=== PATIENT | female | born 1990 | race Caucasian/White ===

== ENCOUNTER 2019-03-02 23:52 | Emergency (ER) | payer SELFPAY ==
[~2019-03-02] VITALS: Ht 172.7 cm; Wt 97.8 kg
[2019-03-02 23:55] VITALS: BP 134/81; PULSE 85; RESP 18; Ht 172.7 cm; Wt 97.8 kg
[2019-03-03] MEDS ORDERED: SULF1TAB31 PO (01:54)
[2019-03-03] MEDS ORDERED: CEPH-443 PO (01:54)
--- NOTE | 2019-03-03 02:02 | ERD ---
ER Documentation Chief Complaint Chief Complaint R calf pain and swelling and itchy HPI This is an otherwise healthy 28-year-old female presents to the ED complaining of right calf and swelling since 6:30 PM. Patient states she noticed the symptoms after using the sauna earlier today. Redness has been progressively worsening. States her calf feels hot. She denies any calf pain. Denies any shortness of breath or chest pain. No other complaints. ROS All systems reviewed and are negative except as per history of present illness. Medications Home Meds Active Scripts Sulfamethoxazole/Trimethoprim* (Bactrim Ds* Tablet) 1 Each Tablet, 1 TAB PO BID, #10 TAB Prov:DISHIGRIKIAN,ZEPYUR N PA-C 03/03/19 Cephalexin* (Keflex*) 500 Mg Capsule, 500 MG PO QID for 5 Days, CAP Prov:DISHIGRIKIAN,ZEPYUR N PA-C 03/03/19 PMhx/Soc Medical and Surgical Hx: pt denies Medical Hx, pt denies Surgical Hx Hx Alcohol Use: No Hx Substance Use: No Hx Tobacco Use: No Physical Exam Vitals Vital Signs Date Temp Pulse Resp B/P (MAP) Pulse Ox O2 O2 Flow FiO2 Time Delivery Rate 03/02/19 99.2 85 18 134/81 99 23:55 (98) Physical Exam Const: No acute distress Head: Atraumatic Eyes: Normal Conjunctiva ENT: Normal External Ears, Nose and Mouth. Neck: Full range of motion. No meningismus. Skin: + Approximately 5 x 3 cm area of erythema and swelling to the right posterior calf, warm to the touch. Back: No midline or flank tenderness Ext: No cyanosis, or edema. Negative Homans sign. No pain with dorsiflexion. Neur: Awake and alert Psych: Normal Mood and Affect Procedures/MDM This is a 28-year-old female who presents with right calf erythema and swelling. She has no fever here. Vital signs are stable. Patient has a low risk Wells score, therefore doubt DVT. Signs and symptoms are most consistent with cellulitis. No signs of ischemic necrosis, abscess, sepsis or other deep space infection. Will treat with outpatient antibiotics, Keflex and Bactrim. Re commended follow-up and will recheck in 48 hours. Strict return precautions were discussed. Prescriptions: Bactrim, Keflex. Departure Diagnosis: Primary Impression: Cellulitis Site of cellulitis: extremity Site of cellulitis of extremity: lower extremity Laterality: right Qualified Codes: L03.115 - Cellulitis of right lower limb Condition: Stable Patient Instructions: Cellulitis Referrals: [facility] YOU HAVE RECEIVED A MEDICAL SCREENING EXAM AND THE RESULTS INDICATE THAT YOU DO NOT HAVE A CONDITION THAT REQUIRES URGENT TREATMENT IN THE EMERGENCY DEPARTMENT. FURTHER EVALUATION AND TREATMENT OF YOUR CONDITION CAN WAIT UNTIL YOU ARE SEEN IN YOUR DOCTORS OFFICE WITHIN THE NEXT 1-2 DAYS. IT IS YOUR RESPONSIBILITY TO MAKE AN APPOINTMENT FOR FOLOW-UP CARE. IF YOU HAVE A PRIMARY DOCTOR --you should call your primary doctor and schedule an appointment IF YOU DO NOT HAVE A PRIMARY DOCTOR YOU CAN CALL OUR PHYSICIAN REFERRAL HOTLINE AT IF YOU CAN NOT AFFORD TO SEE A PHYSICIAN YOU CAN CHOSE FROM THE FOLLOWING [facility] [address] [facility] [address] [facility] [facility] [address] [facility] [address] [facility] [address] [facility]. [facility] [address] [facility] [facility] YOU HAVE RECEIVED A MEDICAL SCREENING EXAM AND THE RESULTS INDICATE THAT YOU DO NOT HAVE A CONDITION THAT REQUIRES URGENT TREATMENT IN THE EMERGENCY DEPARTMENT. FURTHER EVALUATION AND TREATMENT OF YOUR CONDITION CAN WAIT UNTIL YOU ARE SEEN IN YOUR DOCTORS OFFICE WITHIN THE NEXT 1-2 DAYS. IT IS YOUR RESPONSIBILITY TO MAKE AN APPOINTMENT FOR FOLOW-UP CARE. IF YOU HAVE A PRIMARY DOCTOR --you should call your primary doctor and schedule and appointment IF YOU DO NOT HAVE A PRIMARY DOCTOR YOU CAN CALL OUR PHYSICIAN REFERRAL HOTLINE AT . IF YOU CAN NOT AFFORD TO SEE A PHYSICIAN YOU CAN CHOSE FROM THE FOLLOWING [facility] INSTITUTIONS: [facility] [address] [place] [address] [facility] [address] [place] [address] [facility] [address] [place] [address] Additional Instructions: HAPPY EARLY BIRTHDAY!!! Continue taking the full course of antibiotics. Monitor for any worsening redness past the edges of the marker. Return here for any worsening redness, swelling, fevers or any other symptoms. PRESTON GEORGES PA-C Mar 03, 2019 02:02
== END 2019-03-03 02:45 | disposition left against medical advice (07) ==
LOC: FTE 23:52
DX: L03.115 Cellulitis of right lower limb (principal)
CPT/HCPCS: 99283